=== PATIENT | female | born 1945 ===

== ENCOUNTER 2021-10-16 19:09 | Inpatient (IN) | payer OTHER ==
[2021-10-17 03:35] LABS: SARS-CoV-2 NAA Rapid Test Not Detected (NotDetected)
[2021-10-17] MEDS: cloNIDine 0.1 MG TAB PO SCH ×3 (06:05→21:09)
[2021-10-17] MEDS: Nystatin Powder 15 GM BOT TOP SCH ×2 (10:08→21:10)
[2021-10-17] MEDS: Bumetanide 1 MG TAB PO SCH (10:10)
[2021-10-17] MEDS: Lidocaine 5% Patch TD SCH (10:10)
[2021-10-17] MEDS: Aspirin Chewable 81 MG TAB PO SCH (10:11)
[2021-10-17] MEDS: Carvedilol 6.25 MG TAB PO SCH ×2 (10:11→21:09)
[2021-10-17] MEDS: NIFEdipine XL 30 MG TAB PO SCH (10:11)
[2021-10-17] MEDS ORDERED: Scopolamine 1.5 mg/72 hour Patch TOP PRN (11:00)
[2021-10-17] MEDS ORDERED: Haloperidol Lactate 5 MG/ML VIAL SLOW IVP PRN (11:00)
[2021-10-17] MEDS ORDERED: Lorazepam 1 MG TAB PO PRN (11:00)
[2021-10-17] MEDS ORDERED: Senokot 8.6 MG TAB PO PRN (11:00)
[2021-10-17] MEDS ORDERED: Acetaminophen 650 MG Suppository PR PRN (11:01)
[2021-10-17] MEDS ORDERED: Morphine 10 MG/0.5 ML ORAL SYRINGE SL PRN (11:08)
[2021-10-17] MEDS: Morphine 2 MG/ML VIAL SLOW IVP PRN ×2 (11:30→13:58)
[2021-10-17] MEDS: ALPRAZolam 0.25 MG TAB PO SCH (21:09)
[2021-10-17] MEDS: Melatonin 3 MG TAB PO SCH ×2 (21:10→21:17)
[2021-10-18] MEDS: cloNIDine 0.1 MG TAB PO SCH ×3 (05:58→22:09)
[2021-10-18] MEDS: Aspirin Chewable 81 MG TAB PO SCH (10:05)
[2021-10-18] MEDS: Carvedilol 6.25 MG TAB PO SCH ×2 (10:05→21:15)
[2021-10-18] MEDS: Bumetanide 1 MG TAB PO SCH (10:05)
[2021-10-18] MEDS: NIFEdipine XL 30 MG TAB PO SCH (10:06)
[2021-10-18] MEDS: Lidocaine 5% Patch TD SCH (10:06)
[2021-10-18] MEDS: Nystatin Powder 15 GM BOT TOP SCH ×2 (10:06→22:08)
[2021-10-18] MEDS: Morphine 2 MG/ML VIAL SLOW IVP PRN ×3 (16:35→22:43)
[2021-10-18] MEDS: ALPRAZolam 0.25 MG TAB PO SCH (21:15)
[2021-10-18] MEDS: Melatonin 3 MG TAB PO SCH (22:08)
[2021-10-19] MEDS: Morphine 2 MG/ML VIAL SLOW IVP PRN ×3 (05:53→14:25)
[2021-10-19] MEDS: cloNIDine 0.1 MG TAB PO SCH ×3 (05:53→20:42)
[2021-10-19] MEDS: Carvedilol 6.25 MG TAB PO SCH ×3 (08:57→20:43)
[2021-10-19] MEDS: NIFEdipine XL 30 MG TAB PO SCH ×3 (08:57→12:11)
[2021-10-19] MEDS: Aspirin Chewable 81 MG TAB PO SCH ×2 (08:58→11:32)
[2021-10-19] MEDS: Lidocaine 5% Patch TD SCH ×3 (08:59→11:34)
[2021-10-19] MEDS: Bumetanide 1 MG TAB PO SCH ×2 (09:18→11:34)
[2021-10-19] MEDS: Nystatin Powder 15 GM BOT TOP SCH ×2 (09:31→20:57)
[2021-10-19] MEDS: oxyCODONE 5 MG TAB PO PRN ×2 (16:37→20:43)
[2021-10-19] MEDS: Melatonin 3 MG TAB PO SCH (20:43)
[2021-10-19] MEDS: ALPRAZolam 0.25 MG TAB PO SCH (20:43)
[2021-10-20] MEDS: oxyCODONE 5 MG TAB PO PRN ×5 (04:06→21:35)
[2021-10-20] MEDS: cloNIDine 0.1 MG TAB PO SCH ×3 (05:28→21:35)
[2021-10-20] MEDS: DULoxetine 30 MG CAP PO SCH (09:10)
[2021-10-20] MEDS: Carvedilol 6.25 MG TAB PO SCH ×2 (09:10→21:35)
[2021-10-20] MEDS: Bumetanide 1 MG TAB PO SCH (09:10)
[2021-10-20] MEDS: Aspirin Chewable 81 MG TAB PO SCH (09:10)
[2021-10-20] MEDS: NIFEdipine XL 30 MG TAB PO SCH (09:19)
[2021-10-20] MEDS: Lidocaine 5% Patch TD SCH (09:19)
[2021-10-20] MEDS: Nystatin Powder 15 GM BOT TOP SCH ×2 (09:19→21:48)
[2021-10-20] MEDS: ALPRAZolam 0.25 MG TAB PO SCH (21:33)
[2021-10-20] MEDS: Melatonin 3 MG TAB PO SCH (21:34)
[2021-10-20] MEDS: Senokot 8.6 MG TAB PO SCH (21:34)
[2021-10-21] MEDS: cloNIDine 0.1 MG TAB PO SCH ×3 (06:31→21:13)
[2021-10-21] MEDS: Aspirin Chewable 81 MG TAB PO SCH (10:03)
[2021-10-21] MEDS: Carvedilol 6.25 MG TAB PO SCH ×2 (10:03→21:13)
[2021-10-21] MEDS: Lidocaine 5% Patch TD SCH (10:04)
[2021-10-21] MEDS: DULoxetine 30 MG CAP PO SCH (10:04)
[2021-10-21] MEDS: NIFEdipine XL 30 MG TAB PO SCH (10:14)
[2021-10-21] MEDS: Senokot 8.6 MG TAB PO SCH ×2 (10:14→21:13)
[2021-10-21] MEDS: Nystatin Powder 15 GM BOT TOP SCH ×2 (10:15→21:14)
[2021-10-21] MEDS: oxyCODONE 5 MG TAB PO PRN (11:34)
[2021-10-21] MEDS: Bumetanide 1 MG TAB PO SCH (11:36)
[2021-10-21] MEDS: ALPRAZolam 0.25 MG TAB PO SCH (21:13)
[2021-10-21] MEDS: Melatonin 3 MG TAB PO SCH (21:13)
[2021-10-22] MEDS: cloNIDine 0.1 MG TAB PO SCH ×3 (05:55→20:52)
[2021-10-22] MEDS: Aspirin Chewable 81 MG TAB PO SCH (08:10)
[2021-10-22] MEDS: DULoxetine 30 MG CAP PO SCH (08:10)
[2021-10-22] MEDS: Senokot 8.6 MG TAB PO SCH ×2 (08:10→20:52)
[2021-10-22] MEDS: Lidocaine 5% Patch TD SCH (08:11)
[2021-10-22] MEDS: NIFEdipine XL 30 MG TAB PO SCH (08:11)
[2021-10-22] MEDS: Bumetanide 1 MG TAB PO SCH (08:11)
[2021-10-22] MEDS: Carvedilol 6.25 MG TAB PO SCH ×2 (08:11→20:50)
[2021-10-22] MEDS: Nystatin Powder 15 GM BOT TOP SCH ×3 (08:12→20:53)
[2021-10-22] MEDS: Ondansetron PF 4 MG/2 ML Vial IVP PRN (13:06)
[2021-10-22] MEDS: ALPRAZolam 0.25 MG TAB PO SCH (20:50)
[2021-10-22] MEDS: Melatonin 3 MG TAB PO SCH (20:51)
[2021-10-22] MEDS: oxyCODONE 5 MG TAB PO PRN (20:56)
[2021-10-23] MEDS: oxyCODONE 5 MG TAB PO PRN ×3 (03:25→21:50)
[2021-10-23] MEDS: Ondansetron PF 4 MG/2 ML Vial IVP PRN (03:37)
[2021-10-23] MEDS: cloNIDine 0.1 MG TAB PO SCH ×3 (07:12→21:49)
[2021-10-23] MEDS: DULoxetine 30 MG CAP PO SCH ×2 (08:34→09:30)
[2021-10-23] MEDS: Aspirin Chewable 81 MG TAB PO SCH ×2 (08:34→09:30)
[2021-10-23] MEDS: Lidocaine 5% Patch TD SCH (08:34)
[2021-10-23] MEDS: NIFEdipine XL 30 MG TAB PO SCH ×2 (08:34→09:31)
[2021-10-23] MEDS: Senokot 8.6 MG TAB PO SCH ×3 (08:34→21:50)
[2021-10-23] MEDS: Carvedilol 6.25 MG TAB PO SCH ×3 (08:34→21:56)
[2021-10-23] MEDS: Nystatin Powder 15 GM BOT TOP SCH ×3 (08:34→22:02)
[2021-10-23] MEDS: Bumetanide 1 MG TAB PO SCH (09:30)
[2021-10-23 15:21] LABS: SARS-CoV-2 PCR by NAA Not Detected (NotDetected)
[2021-10-23] MEDS: Melatonin 3 MG TAB PO SCH (21:50)
[2021-10-23] MEDS: ALPRAZolam 0.25 MG TAB PO SCH (21:50)
[2021-10-24] MEDS: cloNIDine 0.1 MG TAB PO SCH (05:56)
[2021-10-24 08:13] VITALS: TEMP 96.3
[2021-10-24] MEDS: Ondansetron PF 4 MG/2 ML Vial IVP PRN (08:22)
[2021-10-24] MEDS: Carvedilol 6.25 MG TAB PO SCH (08:22)
[2021-10-24] MEDS: NIFEdipine XL 30 MG TAB PO SCH (08:22)
[2021-10-24] MEDS: Senokot 8.6 MG TAB PO SCH (08:22)
[2021-10-24] MEDS: Aspirin Chewable 81 MG TAB PO SCH (08:22)
[2021-10-24 08:23] VITALS: BP 167/103
[2021-10-24] MEDS: DULoxetine 30 MG CAP PO SCH (08:23)
[2021-10-24] MEDS: Nystatin Powder 15 GM BOT TOP SCH (08:23)
[2021-10-24] MEDS: Bumetanide 1 MG TAB PO SCH (08:23)
[2021-10-24] MEDS: Lidocaine 5% Patch TD SCH (08:23)
== END 2021-10-24 12:59 | DRG 951 ==
LOC: CSHTELE 19:09
PROVIDERS: ADMIT Family Medicine; ATTEND Family Medicine
DX: Z51.5 Encounter for palliative care (principal); G82.20 Paraplegia, unspecified; R63.0 Anorexia; N18.9 Chronic kidney disease, unspecified; I25.10 Atherosclerotic heart disease of native coronary artery without angina pectoris; F41.9 Anxiety disorder, unspecified; J44.9 Chronic obstructive pulmonary disease, unspecified; I48.91 Unspecified atrial fibrillation; K00.3 Mottled teeth; G47.00 Insomnia, unspecified; R45.1 Restlessness and agitation; G89.29 Other chronic pain; R11.0 Nausea; L89.311 Pressure ulcer of right buttock, stage 1; M54.2 Cervicalgia; Z20.822 Contact with and (suspected) exposure to COVID-19; Z68.26 Body mass index [BMI] 26.0-26.9, adult; Z99.81 Dependence on supplemental oxygen; Z74.01 Bed confinement status
CPT/HCPCS: J2270; J2405; U0002; U0003; U0005